=== PATIENT | male | born 1975 | race Caucasian/White ===

== ENCOUNTER 2017-08-30 12:34 | Inpatient (IN) | payer OTHER, MEDICAID, MEDICARE ==
[~2017-08-30] VITALS: Ht 182.9 cm; Wt 79.5 kg
[2017-08-30] VITALS (8 sets, daily range): BP systolic 107–141; BP diastolic 56–81; PULSE 88–111; RESP 18–20; TEMP 98.3–99.3; O2SAT 90–97
[~2017-08-30 12:34] MED LIST: DICL75 PO; Z.0.NO CURRENT MEDS
--- NOTE | 2017-08-30 14:42 | RADRPT ---
EXAM DATE/TIME: 08/30/2017 13:23 [place] COMPARISON: No previous studies available for comparison. INDICATIONS : Cough, short of breath, and chest pain for 2 weeks. MEDICAL HISTORY : None. SURGICAL HISTORY : None. ENCOUNTER: Initial ACUITY: 2 weeks PAIN SCORE: 4/10 LOCATION: Bilateral chest FINDINGS: There is a focal masslike opacity in the right upper lobe anteriorly. This measures approximately 7.4 x 6.5 cm. Subtle patchy airspace disease in the left lung apex. Cardiac silhouette is within normal limits. Bony thorax is intact. CONCLUSION: 1. Focal masslike right upper lobe airspace consolidation measuring 7.4 x 6.5 cm. Differential consid erations include focal airspace infection/atypical infection versus malignancy. Followup to resolutio n is recommended. 2. Subtle patchy airspace disease in the left lung apex concerning for developing airspace infection. Nestor Brice MD on August 30, 2017 at 14:36 Board Certified Radiologist. This report was verified electronically.
[2017-08-30 14:57] LABS: ALBUMIN 3.3 GM/DL (3.4-5.0); AST (GOT) 21 U/L (15-37); BICARBONATE 27.5 MEQ/L (21.0-32.0); BLOOD UREA NITROGEN 13 MG/DL (7-18); CALCIUM 9.5 MG/DL (8.5-10.1); CHLORIDE 99 MEQ/L (98-107); CREATININE 1.18 MG/DL (0.60-1.30); GLOMERULAR FILTRATION RATE 67 ML/MIN (>89); GLUCOSE,RANDOM 79 MG/DL (74-106); SODIUM (NA) 136 MEQ/L (136-145)
[2017-08-30 14:58] LABS: ALT (GPT) 40 U/L (12-78)
[2017-08-30 15:00] LABS: ALKALINE PHOSPHATASE 75 U/L (45-117); TOTAL BILIRUBIN ADULT 0.4 MG/DL (0.2-1.0); TOTAL PROTEIN 8.5 GM/DL (6.4-8.2)
[2017-08-30 15:07] LABS: AUTOMATED NEUTROPHIL # 14.7 TH/MM3 (1.8-7.7); BASOPHIL # 0.1 TH/MM3 (0-0.2); BASOPHIL % 0.4 % (0.0-2.0); EOSINOPHIL # 0.6 TH/MM3 (0-0.4); EOSINOPHIL % 2.9 % (0.0-4.0); HEMATOCRIT 41.1 % (39.0-51.0); HEMOGLOBIN 14.5 GM/DL (13.0-17.0); LYMPH % 15.2 % (9.0-44.0); MEAN CELL VOLUME 96.4 FL (80.0-100.0); MEAN CORPUSCULAR HEMOGLOBIN 34.1 PG (27.0-34.0); MEAN CORPUSCULAR HGB CONC 35.4 % (32.0-36.0); MEAN PLATELET VOLUME 7.8 FL (7.0-11.0); MONO % 7.4 % (0.0-8.0); MONOCYTE # 1.5 TH/MM3 (0-0.9); NEUT % 74.1 % (16.0-70.0); PLATELET COUNT 641 TH/MM3 (150-450); RED BLOOD COUNT 4.26 MIL/MM3 (4.50-5.90); RED CELL DISTRIBUTION WIDTH 13.9 % (11.6-17.2); WHITE BLOOD COUNT 19.8 TH/MM3 (4.0-11.0)
[2017-08-30 16:20] LABS: BANDS 3 % (0-6); BASOPHILS 1 % (0-2); LYMPHOCYTES 24 % (9-44); MONOCYTES 5 % (0-8); NEUTROPHIL # MANUAL DIFF 13.9 TH/MM3 (1.8-7.7); POLYS (SEG NEUTROPHILS) 67 % (16-70)
--- NOTE | 2017-08-30 16:44 | PD ---
HPI Chief Complaint: Cold / Flu Symptoms Time Seen by Provider: 16:36 Travel History International Travel<30 days: No Contact w/Intl Traveler<30days: No Traveled to known affect area: No History of Present Illness HPI 42-year-old male presents to emergency department status post seeing his PCP for follow-up emergency room visit at [facility]. Patient states he was checked for influenza which was found to be negative. He was given azithromycin and Ceftin by mouth outpatient. Patient is a smoker approximate half a pack per day. Patient states he has been sick since New Year' Day, with fevers up to 103. Patient continues to have cough, shortness of breath, chest discomfort as well as body aches. He denies nausea or vomiting or significant abdominal pain. Patient states primary care physician sent her here for admission. Patient has been taking Tylenol and ibuprofen for his fevers. He denies alcohol or drug use. He denies hemoptysis. He has no known drug allergies. 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) Influenza Vaccination: No Past Surgical History Oral Surgery: Yes (DENTAL IMPLANTS) Other Surgery: Yes (pilonal cyst) Social History Alcohol Use: No Tobacco Use: Yes (1/2 PPD) Substance Use: No Allergies-Medications (Allergen,Severity, Reaction): Coded Allergies: No Known Allergies (Verified , 05/18/10) Reported Meds & Prescriptions Reported Meds & Active Scripts Active Diclofenac Sodium 75 Mg Tab 75 Mg PO BIDPRN Reported No Current Meds (Miscellaneous Medication) Misc Review of Systems Except as stated in HPI: all other systems reviewed are Neg General / Constitutional: Positive: Fever, Chills Eyes: No: Visual changes HENT: Positive: Headaches, Rhinitis, Rhinorrhea, Congestion, No: Vertigo, Lightheadedness, Sore Throat, Nosebleed, Neck Stiffness, Neck Pain, Dental Difficulties, Earache Cardiovascular: No: Chest Pain or Discomfort Respiratory: Positive: Cough, Shortness of Breath, Wheezing, Orthopnea, Night Sweats, Pleuritic Pain (from cough.), No: Sneezing, Hemoptysis, Stridor Gastrointestinal: No: Nausea, Vomiting, Diarrhea, Abdominal Pain, Loss of Appetite Genitourinary: No: Dysuria Musculoskeletal: No: Pain Skin: No Rash Neurologic: No: Weakness Psychiatric: No: Depression Endocrine: No: Polydipsia Hematologic/Lymphatic: No: Easy Bruising Physical Exam Narrative GENERAL: Patient appears ill and possibly septic. SKIN: Warm. Decreased pallor. Mild diaphoresis. HEAD: Atraumatic. Normocephalic. EYES: Pupils equal and round. No scleral icterus. No injection or drainage. ENT: No nasal bleeding or discharge. Mucous membranes pink and moist. TMs are clear bilaterally. Pharynx is clear. No significant erythema is noted in the posterior pharynx. No significant tonsillitis. No significant sinus tenderness to palpation or percussion. NECK: Trachea midline. Supple and nontender. CARDIOVASCULAR: Tachycardic rate and normal rhythm. No murmurs appreciated. RESPIRATORY: No accessory muscle use. Patient has diffuse wheezes and rhonchi to auscultation. Breath sounds equal bilaterally. GASTROINTESTINAL: Abdomen soft, non-tender, nondistended. Hepatic and splenic margins not palpable. MUSCULOSKELETAL: Extremities without clubbing, cyanosis, or edema. No obvious deformities. NEUROLOGICAL: Awake and alert. No obvious cranial nerve deficits. Motor grossly within normal limits. Five out of 5 muscle strength in the arms and legs. Normal speech. PSYCHIATRIC: Appropriate mood and affect; insight and judgment normal. Data Data Last Documented VS Vital Signs Date Time Temp Pulse Resp B/P (MAP) Pulse Ox O2 Delivery O2 Flow Rate FiO2 08/30/17 17:27 88 18 127/70 (89) 94 Room Air 08/30/17 12:35 99.3 Orders Orders Complete Blood Count With Diff (08/30/17 12:59) Comprehensive Metabolic Panel (08/30/17 12:59) Chest, Pa & Lat (08/30/17 12:59) Ceftriaxone Inj (Rocephin Inj) (08/30/17 16:45) Azithromycin Inj (Zithromax Inj) (08/30/17 16:45) Lactic Acid (08/30/17 16:36) Blood Culture (08/30/17 16:36) Albuterol-Ipratropium Neb (Duoneb Neb) (08/30/17 16:45) Ecg Monitoring (08/30/17 16:36) Iv Access Insert/Monitor (08/30/17 16:36) Oximetry (08/30/17 16:36) Oxygen Administration (08/30/17 16:36) Methylprednisolone So Succ Inj (Solumedr (08/30/17 16:45) Albuterol-Ipratropium Neb (Duoneb Neb) (08/30/17 16:45) Blood Culture (08/30/17 16:54) Admit Order (Ed Use Only) (08/30/17 17:53) Labs Laboratory Tests Test 08/30/17 14:08 08/30/17 16:55 White Blood Count 19.8 TH/MM3 Red Blood Count 4.26 MIL/MM3 Hemoglobin 14.5 GM/DL Hematocrit 41.1 % Mean Corpuscular Volume 96.4 FL Mean Corpuscular Hemoglobin 34.1 PG Mean Corpuscular Hemoglobin Concent 35.4 % Red Cell Distribution Width 13.9 % Platelet Count 641 TH/MM3 Mean Platelet Volume 7.8 FL Neutrophils (%) (Auto) 74.1 % Lymphocytes (%) (Auto) 15.2 % Monocytes (%) (Auto) 7.4 % Eosinophils (%) (Auto) 2.9 % Basophils (%) (Auto) 0.4 % Neutrophils # (Auto) 14.7 TH/MM3 Lymphocytes # (Auto) 3.0 TH/MM3 Monocytes # (Auto) 1.5 TH/MM3 Eosinophils # (Auto) 0.6 TH/MM3 Basophils # (Auto) 0.1 TH/MM3 CBC Comment AUTO DIFF Differential Total Cells Counted 100 Neutrophils % (Manual) 67 % Band Neutrophils % 3 % Lymphocytes % 24 % Monocytes % 5 % Basophils % 1 % Neutrophils # (Manual) 13.9 TH/MM3 Differential Comment FINAL DIFF MANUAL Atypical Lymphocytes % Platelet Estimate HIGH Platelet Morphology Comment CLUMPED Blood Urea Nitrogen 13 MG/DL Creatinine 1.18 MG/DL Random Glucose 79 MG/DL Total Protein 8.5 GM/DL Albumin 3.3 GM/DL Calcium Level 9.5 MG/DL Alkaline Phosphatase 75 U/L Aspartate Amino Transf (AST/SGOT) 21 U/L Alanine Aminotransferase (ALT/SGPT) 40 U/L Total Bilirubin 0.4 MG/DL Sodium Level 136 MEQ/L Potassium Level 4.0 MEQ/L Chloride Level 99 MEQ/L Carbon Dioxide Level 27.5 MEQ/L Anion Gap 10 MEQ/L Estimat Glomerular Filtration Rate 67 ML/MIN Lactic Acid Level 0.9 mmol/L MDM Medical Decision Making Medical Screen Exam Complete: Yes Emergency Medical Condition: Yes Differential Diagnosis Pneumonia. Sepsis. Wheezing. Narrative Course Labs that were ordered in triage include CBC, and CMP. As well as chest x-ray. CBC shows leukocytosis of 19.8, elevated platelet count of 641, to the right shift with 74.1% neutrophils. X-ray shows focal masslike right upper lobe airspace consolidation measuring 7.4 x 6.5 cm with a differential consideration including focal airspace infection/atypical infection versus malignancy. Follow-up to resolution is recommended. Patient is noted have subtle patchy airspace disease in the left lung apex concerning for developing airspace infection. IV access is obtained and lactic acid is ordered. Patient is given 125 milligrams Solu-Medrol IV as well as 1 g Rocephin IV and 500 mg azithromycin by mouth. Patient is given DuoNeb 3. Patient is given 1000 ml normal saline bolus. Lactic acid is Call is placed to us for admission. Patient discussed with Dr. Concepcion by Dr. Chawla. Sepsis Criteria SIRS Criteria (2 or more): Heart rate over 90, RR > 20 or PaCO2 < 32, WBC > 00939, < 4000 or > 10% bands Sepsis Criteria (SIRS+source): Infect source susp/known Criteria Outcome: Meets SIRS criteria, Meets sepsis criteria Diagnosis Primary Impression: Pneumonia Qualified Codes: J18.1 - Lobar pneumonia, unspecified organism Additional Impressions: Sepsis Qualified Codes: A41.9 - Sepsis, unspecified organism Hypoxia Admitting Information Admitting Physician Requests: Admit Condition: Stable Gonzalez Moore Aug 30, 2017 16:44
[2017-08-30] MEDS ORDERED: AZITHROMYCIN INJ 500 MG in SODIUM CHLOR 0.9% 250 ML INJ 250 ML IV ONE (16:45)
[2017-08-30] MEDS ORDERED: RESP: ALBUTEROL 2.5 MG/IPRATROPIUM 0.5 MG NEB (SCH) NEB ONE (16:45)
[2017-08-30] MEDS ORDERED: methylPREDNISolone SOD SUCC 125 MG/2 ML VIAL IV PUSH ONE (16:45)
[2017-08-30] MEDS ORDERED: cefTRIAXone INJ 1,000 MG in SODIUM CHLORIDE 0.9% INJ 100 ML IV ONE (16:45)
[2017-08-30] MEDS: RESP: ALBUTEROL 2.5 MG/IPRATROPIUM 0.5 MG NEB (SCH) INH ×2 (17:31→17:32)
--- NOTE | 2017-08-30 17:46 | PD ---
Physical Exam Date Seen by Provider: Aug 30, 2017 Time Seen by Provider: 17:42 Narrative The patient is a 42-year-old male was initially evaluated by the mid-level provider. Please refer to the initial history, physical, diagnostic evaluation , and treatment modality plan. Data Data Last Documented VS Vital Signs Date Time Temp Pulse Resp B/P (MAP) Pulse Ox O2 Delivery O2 Flow Rate FiO2 08/30/17 17:27 88 18 127/70 (89) 94 Room Air 08/30/17 12:35 99.3 Orders Orders Complete Blood Count With Diff (08/30/17 12:59) Comprehensive Metabolic Panel (08/30/17 12:59) Chest, Pa & Lat (08/30/17 12:59) Ceftriaxone Inj (Rocephin Inj) (08/30/17 16:45) Azithromycin Inj (Zithromax Inj) (08/30/17 16:45) Lactic Acid (08/30/17 16:36) Blood Culture (08/30/17 16:36) Albuterol-Ipratropium Neb (Duoneb Neb) (08/30/17 16:45) Ecg Monitoring (08/30/17 16:36) Iv Access Insert/Monitor (08/30/17 16:36) Oximetry (08/30/17 16:36) Oxygen Administration (08/30/17 16:36) Methylprednisolone So Succ Inj (Solumedr (08/30/17 16:45) Albuterol-Ipratropium Neb (Duoneb Neb) (08/30/17 16:45) Blood Culture (08/30/17 16:54) Labs Laboratory Tests Test 08/30/17 14:08 08/30/17 16:55 White Blood Count 19.8 TH/MM3 Red Blood Count 4.26 MIL/MM3 Hemoglobin 14.5 GM/DL Hematocrit 41.1 % Mean Corpuscular Volume 96.4 FL Mean Corpuscular Hemoglobin 34.1 PG Mean Corpuscular Hemoglobin Concent 35.4 % Red Cell Distribution Width 13.9 % Platelet Count 641 TH/MM3 Mean Platelet Volume 7.8 FL Neutrophils (%) (Auto) 74.1 % Lymphocytes (%) (Auto) 15.2 % Monocytes (%) (Auto) 7.4 % Eosinophils (%) (Auto) 2.9 % Basophils (%) (Auto) 0.4 % Neutrophils # (Auto) 14.7 TH/MM3 Lymphocytes # (Auto) 3.0 TH/MM3 Monocytes # (Auto) 1.5 TH/MM3 Eosinophils # (Auto) 0.6 TH/MM3 Basophils # (Auto) 0.1 TH/MM3 CBC Comment AUTO DIFF Differential Total Cells Counted 100 Neutrophils % (Manual) 67 % Band Neutrophils % 3 % Lymphocytes % 24 % Monocytes % 5 % Basophils % 1 % Neutrophils # (Manual) 13.9 TH/MM3 Differential Comment FINAL DIFF MANUAL Atypical Lymphocytes % Platelet Estimate HIGH Platelet Morphology Comment CLUMPED Blood Urea Nitrogen 13 MG/DL Creatinine 1.18 MG/DL Random Glucose 79 MG/DL Total Protein 8.5 GM/DL Albumin 3.3 GM/DL Calcium Level 9.5 MG/DL Alkaline Phosphatase 75 U/L Aspartate Amino Transf (AST/SGOT) 21 U/L Alanine Aminotransferase (ALT/SGPT) 40 U/L Total Bilirubin 0.4 MG/DL Sodium Level 136 MEQ/L Potassium Level 4.0 MEQ/L Chloride Level 99 MEQ/L Carbon Dioxide Level 27.5 MEQ/L Anion Gap 10 MEQ/L Estimat Glomerular Filtration Rate 67 ML/MIN [facility] Medical Record Reviewed: Yes Supervised Visit with DAYAMI: Yes Interpretation(s) Last Impressions Chest X-Ray 08/30/17 1259 Signed Impressions: Service Date/Time: Wednesday, August 30, 2017 13:23 - CONCLUSION: 1. Focal masslike right upper lobe airspace consolidation measuring 7.4 x 6.5 cm. Differential considerations include focal airspace infection/atypical infection versus malignancy. Followup to resolution is recommended. 2. Subtle patchy airspace disease in the left lung apex concerning for developing airspace infection. Nestor Brice MD Laboratory Tests Test 08/30/17 14:08 08/30/17 16:55 White Blood Count 19.8 TH/MM3 Red Blood Count 4.26 MIL/MM3 Hemoglobin 14.5 GM/DL Hematocrit 41.1 % Mean Corpuscular Volume 96.4 FL Mean Corpuscular Hemoglobin 34.1 PG Mean Corpuscular Hemoglobin Concent 35.4 % Red Cell Distribution Width 13.9 % Platelet Count 641 TH/MM3 Mean Platelet Volume 7.8 FL Neutrophils (%) (Auto) 74.1 % Lymphocytes (%) (Auto) 15.2 % Monocytes (%) (Auto) 7.4 % Eosinophils (%) (Auto) 2.9 % Basophils (%) (Auto) 0.4 % Neutrophils # (Auto) 14.7 TH/MM3 Lymphocytes # (Auto) 3.0 TH/MM3 Monocytes # (Auto) 1.5 TH/MM3 Eosinophils # (Auto) 0.6 TH/MM3 Basophils # (Auto) 0.1 TH/MM3 CBC Comment AUTO DIFF Differential Total Cells Counted 100 Neutrophils % (Manual) 67 % Band Neutrophils % 3 % Lymphocytes % 24 % Monocytes % 5 % Basophils % 1 % Neutrophils # (Manual) 13.9 TH/MM3 Differential Comment FINAL DIFF MANUAL Atypical Lymphocytes % Platelet Estimate HIGH Platelet Morphology Comment CLUMPED Blood Urea Nitrogen 13 MG/DL Creatinine 1.18 MG/DL Random Glucose 79 MG/DL Total Protein 8.5 GM/DL Albumin 3.3 GM/DL Calcium Level 9.5 MG/DL Alkaline Phosphatase 75 U/L Aspartate Amino Transf (AST/SGOT) 21 U/L Alanine Aminotransferase (ALT/SGPT) 40 U/L Total Bilirubin 0.4 MG/DL Sodium Level 136 MEQ/L Potassium Level 4.0 MEQ/L Chloride Level 99 MEQ/L Carbon Dioxide Level 27.5 MEQ/L Anion Gap 10 MEQ/L Estimat Glomerular Filtration Rate 67 ML/MIN Differential Diagnosis Differential diagnoses includes pneumonia, influenza, viral syndrome, bronchitis , dehydration, failed outpatient therapy. Narrative Course I, Dr. Chawla, have reviewed the advance practice practitioner's documentation and am in agreement, met with the patient face to face, made the diagnosis, and the medical decision making was done by me. *My assessment and Findings: The patient is a 42-year-old male was initially evaluated by the mid-level provider. Please refer to the initial history, physical, diagnostic evaluation, treatment modality plan. The patient states he has had symptoms including cough, congestion, shortness of breath that started on August 21, 2017. The patient has been evaluated 3 times in the emergency department at [facility]. The patient states he had an influenza screen which was negative and there was diagnosed with pneumonia yesterday. The patient was diagnosed with pneumonia and placed on cefuroxime and Zithromax. However, the patient states his symptoms are progressing and he has increasing shortness of breath. The cough is mostly dry nonproductive. He does complain of fevers with mild body aches. In the emergency department the patient had an x-ray which reveals around lobe pneumonia in the right lung field with elevated white count of 19.8. Patient's heart rate was greater then 110, patient has SIRS criteria with pneumonia consistent with sepsis. Lactic acid blood culture were sent to lab. The patient was placed on Rocephin and Zithromax for community-acquired pneumonia and will be admitted to the medical service. The patient's O2 saturation was 90%, he was placed on O2 via nasal cannula 2 L. [facility] were paged for admission. Sepsis Criteria SIRS Criteria (2 or more): Heart rate over 90, WBC > 01727, < 4000 or > 10% bands Sepsis Criteria (SIRS+source): Infect source susp/known Physician Communication Physician Communication [facility] were paged for admission. Diagnosis Primary Impression: Pneumonia Qualified Codes: J18.1 - Lobar pneumonia, unspecified organism Additional Impressions: Hypoxia Sepsis Qualified Codes: A41.9 - Sepsis, unspecified organism Admitting Information Admitting Physician Requests: Admit Condition: Stable Rony Chawla MD Aug 30, 2017 17:45
[2017-08-30] MEDS ORDERED: AZIT500T2 PO (19:14)
[2017-08-30] MEDS ORDERED: CEFU1TAB18 PO (19:14)
[2017-08-30] MEDS ORDERED: MELO7.5T27 PO (19:14)
[2017-08-30] MEDS ORDERED: SODIUM CHLORIDE 0.9% FLUSH 10 ML FLUSH IV FLUSH PRN (19:30)
[2017-08-30] MEDS ORDERED: NALOXONE HCL 0.4 MG/ML AMP IV PUSH PRN (19:30)
[2017-08-30] MEDS ORDERED: RESP: ALBUTEROL 2.5 MG/IPRATROPIUM 0.5 MG NEB (PRN) NEB (19:30)
[2017-08-30] MEDS: RESP: ALBUTEROL 2.5 MG/IPRATROPIUM 0.5 MG NEB (SCH) NEB (20:41)
[2017-08-30] MEDS: SODIUM CHLORIDE 0.9% FLUSH 10 ML FLUSH IV FLUSH SCH (21:51)
[2017-08-30] MEDS: FAMOTIDINE 20 MG TAB PO SCH (21:51)
[2017-08-31] VITALS (9 sets, daily range): BP systolic 115–143; BP diastolic 58–72; PULSE 77–97; RESP 18; TEMP 97.4–98.4; O2SAT 93–96
[2017-08-31] MEDS: methylPREDNISolone SOD SUCC 40 MG/1 ML VIAL IV PUSH SCH ×4 (00:39→16:45)
[2017-08-31] MEDS: RESP: ALBUTEROL 2.5 MG/IPRATROPIUM 0.5 MG NEB (SCH) NEB ×4 (03:48→21:36)
--- NOTE | 2017-08-31 05:10 | HHI.HP ---
[facility] Unknown Admission Diagnosis Pneumonia/Sepsis/Hypoxia Diagnoses: (1) Pneumonia (2) Sepsis (3) Hypoxia Chief Complaint: Fevers, nonproductive cough, shortness of breath Travel History International Travel<30 Days: No Contact w/Intl Traveler <30 Da: No Traveled to Known Affected Are: No History of Present Illness Mr. 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 The patient was seen at the [facility] for treatment of 3 days of body aches and fevers. He was given Tamiflu despite a negative influenza screen and told to alternate Tylenol and Motrin. His symptoms persisted and on 08/29/2017, he returned to [facility] and was diagnosed with right middle lobe pneumonia. He was treated with azithromycin and Ceftin and sent home. He called his primary care physician to follow-up on 08/30/2017 and was advised to come to the hospital for admission. The patient is seen in his hospital room. He is complaining of severe, sharp right lower rib cage pain with coughing only, shortness of breath, severe fatigue, and malaise. He denies any nausea, vomiting, abdominal pain, or diarrhea. He reports daily bowel movements with last BM occurring 08/30/2017. His cough is nonproductive. He reports that his fevers have resolved since starting antibiotics. His temperature on admission was 99.3. He was hypoxic with an oxygen saturation of 90% and pulse of 110 with chest x-ray showing focal masslike right upper lobe airspace consolidation measuring 7.4 x 6.5 cm. Subtle patchy airspace disease and left lung apex concerning for development of airspace infection also. I have personally reviewed the chest x-ray image and agree with findings. The patient reports mild improvement in symptoms since arrival. The patient is admitted for sepsis, pneumonia, and hypoxia. 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 Past Surgical History Dental implants Pilonidal cyst removal . Reported Medications Reported Meds & Active Scripts Active Reported Meloxicam 7.5 Mg Tab 7.5 Mg PO DAILY Ceftin (Cefuroxime Axetil) 250 Mg Tab 500 Mg PO BID Azithromycin 500 Mg Tab 500 Mg PO DAILY . Allergies: Coded Allergies: No Known Allergies (Verified Allergy, Unknown, 08/30/17) Active Ordered Medications Last Impressions Chest X-Ray 08/30/17 1259 Signed Impressions: Service Date/Time: Wednesday, August 30, 2017 13:23 - CONCLUSION: 1. Focal masslike right upper lobe airspace consolidation measuring 7.4 x 6.5 cm. Differential considerations include focal airspace infection/atypical infection versus malignancy. Followup to resolution is recommended. 2. Subtle patchy airspace disease in the left lung apex concerning for developing airspace infection. Nestor Brice MD . Family History Mother alive Father from myocardial infarctions in his late 60s . Social History Tobacco: Recently cut down from 2 packs per day to one pack per day but has only been smoking one to 2 cigarettes a day since becoming ill Alcohol: Denies Illicit Drugs: Occasional marijuana . Physical Exam Vital Signs Vital Signs Date Time Temp Pulse Resp B/P (MAP) Pulse Ox O2 Delivery O2 Flow Rate FiO2 08/31/17 03:52 95 Nasal Cannula 1.00 08/31/17 02:39 Nasal Cannula 2.00 08/31/17 00:00 98.4 97 18 126/68 (87) 93 08/30/17 22:22 98.3 105 18 120/60 (80) 93 08/30/17 21:15 90 16 107/56 (73) 94 08/30/17 19:39 110 18 107/56 (73) 94 Nasal Cannula 2.00 08/30/17 19:14 111 20 94 Nasal Cannula 2.00 08/30/17 18:48 88 124/67 (86) 08/30/17 17:27 88 18 127/70 (89) 94 Room Air 08/30/17 17:27 94 08/30/17 16:34 93 18 141/81 (101) 97 Room Air 08/30/17 12:35 99.3 110 20 120/73 (89) 90 Room Air Physical Exam GENERAL: This is an ill-appearing patient, in no apparent distress. SKIN: No rashes, ecchymoses or lesions. Cool and dry. HEAD: Atraumatic. Normocephalic. EYES: No scleral icterus. No injection or drainage. Right eye does not track. ENT: Nose without bleeding, purulent drainage. NECK: Trachea midline. No JVD or lymphadenopathy. CARDIOVASCULAR: Regular rate and rhythm without murmurs, gallops, or rubs. RESPIRATORY: Mild dyspnea noted with conversation. Few scattered rhonchi noted bilaterally. GASTROINTESTINAL: Abdomen soft, non-tender, nondistended. No guarding. MUSCULOSKELETAL: Extremities without clubbing, cyanosis, or edema. No calf tenderness. NEUROLOGICAL: Awake and alert. Motor and sensory grossly within normal limits. Normal speech. . Laboratory Laboratory Tests Test 08/30/17 14:08 08/30/17 16:55 White Blood Count 19.8 Red Blood Count 4.26 Hemoglobin 14.5 Hematocrit 41.1 Mean Corpuscular Volume 96.4 Mean Corpuscular Hemoglobin 34.1 Mean Corpuscular Hemoglobin Concent 35.4 Red Cell Distribution Width 13.9 Platelet Count 641 Mean Platelet Volume 7.8 Neutrophils (%) (Auto) 74.1 Lymphocytes (%) (Auto) 15.2 Monocytes (%) (Auto) 7.4 Eosinophils (%) (Auto) 2.9 Basophils (%) (Auto) 0.4 Neutrophils # (Auto) 14.7 Lymphocytes # (Auto) 3.0 Monocytes # (Auto) 1.5 Eosinophils # (Auto) 0.6 Basophils # (Auto) 0.1 CBC Comment AUTO DIFF Differential Total Cells Counted 100 Neutrophils % (Manual) 67 Band Neutrophils % 3 Lymphocytes % 24 Monocytes % 5 Basophils % 1 Neutrophils # (Manual) 13.9 Differential Comment FINAL DIFF MANUAL Atypical Lymphocytes Platelet Estimate HIGH Platelet Morphology Comment CLUMPED Blood Urea Nitrogen 13 Creatinine 1.18 Random Glucose 79 Total Protein 8.5 Albumin 3.3 Calcium Level 9.5 Alkaline Phosphatase 75 Aspartate Amino Transf (AST/SGOT) 21 Alanine Aminotransferase (ALT/SGPT) 40 Total Bilirubin 0.4 Sodium Level 136 Potassium Level 4.0 Chloride Level 99 Carbon Dioxide Level 27.5 Anion Gap 10 Estimat Glomerular Filtration Rate 67 Lactic Acid Level 0.9 Date/Time Source Procedure Growth Status 08/30/17 16:45 Blood Peripheral Aerobic Blood Culture Pending Received 08/30/17 16:45 Blood Peripheral Anaerobic Blood Culture Pending Received Result Diagram: 08/30/17 1408 08/30/17 1408 Imaging . Last Impressions Chest X-Ray 08/30/17 1259 Signed Impressions: Service Date/Time: Wednesday, August 30, 2017 13:23 - CONCLUSION: 1. Focal masslike right upper lobe airspace consolidation measuring 7.4 x 6.5 cm. Differential considerations include focal airspace infection/atypical infection versus malignancy. Followup to resolution is recommended. 2. Subtle patchy airspace disease in the left lung apex concerning for developing airspace infection. MD Carloz Buck VTE Risk Assessment Caprini VTE Risk Assessment: Mod/High Risk (score >= 2) Caprini Risk Assessment Model Point Value = 1 Point Value = 2 Point Value = 3 Point Value = 5 Age 41-60 Minor surgery BMI > 25 kg/m2 Swollen legs Varicose veins or History of unexplained or recurrent spontaneous Oral contraceptives or hormone replacement Sepsis (< 1 month) Serious lung disease, including pneumonia (< 1 month) Abnormal pulmonary function Acute myocardial infarction Congestive heart failure (< 1 month) History of inflammatory bowel disease Medical patient at bed rest Age 61-74 Arthroscopic surgery Major open surgery (> 45 min) Laparoscopic surgery (> 45 min) Malignancy Confined to bed (> 72 hours) Immobilizing plaster cast Central venous access Age >= 75 History of VTE Family history of VTE Factor V Leiden Prothrombin [id number] Lupus anticoagulant Anticardiolipin antibodies Elevated serum homocysteine Heparin-induced thrombocytopenia Other congenital or acquired thrombophilia Stroke (< 1 month) Elective arthroplasty Hip, pelvis, or leg fracture Acute spinal cord injury (< 1 month) Prophylaxis Regimen Total Risk Factor Score Risk Level Prophylaxis Regimen 0-1 Low Early ambulation 2 Moderate Order ONE of the following: *Sequential Compression Device (SCD) *Heparin 5000 units SQ BID 3-4 Higher Order ONE of the following medications: *Heparin 5000 units SQ TID *Enoxaparin/Lovenox 40 mg SQ daily (WT < 150 kg, CrCl > 30 mL/min) *Enoxaparin/Lovenox 30 mg SQ daily (WT < 150 kg, CrCl > 10-29 mL/min) *Enoxaparin/Lovenox 30 mg SQ BID (WT < 150 kg, CrCl > 30 mL/min) AND/OR *Sequential Compression Device (SCD) 5 or more Highest Order ONE of the following medications: *Heparin 5000 units SQ TID (Preferred with Epidurals) *Enoxaparin/Lovenox 40 mg SQ daily (WT < 150 kg, CrCl > 30 mL/min) *Enoxaparin/Lovenox 30 mg SQ daily (WT < 150 kg, CrCl > 10-29 mL/min) *Enoxaparin/Lovenox 30 mg SQ BID (WT < 150 kg, CrCl > 30 mL/min) AND *Sequential Compression Device (SCD) Assessment and Plan Problem List: (1) Pneumonia ICD Code: J18.9 - Pneumonia, unspecified organism Status: Acute (2) Sepsis ICD Code: A41.9 - Sepsis, unspecified organism Status: Acute (3) Hypoxia ICD Code: R09.02 - Hypoxemia Status: Acute Assessment and Plan Pneumonia, bilateral Sepsis Hypoxia - Antibiotics: Levaquin 750 mg every 24 hours IV and azithromycin 500 mg every 24 hours IV - Duo nebulizers every 6 hours around the clock and every 2 hours as needed for wheezing - Solu-Medrol 40 mg IV every 6 hours - Robitussin-AC 10 cc every 4 hours by mouth for painful cough for cough interfering with rest - Pepcid 20 mg twice a day for GI prophylaxis - Incentive spirometry - Blood culture pending, follow results Tobacco abuse - Recommended smoking cessation Leukocytosis - WBC 19.8 with neutrophilia - Recheck CBC in a.m. and follow trends - in place. Resolution with effective treatment of pneumonia DVT prophylaxis - Heparin 5000 units subcutaneous every 12 hours Discussed Condition With Patient, Dr. York Physician Certification 2 Midnight Certification Type: Admission for Inpatient Services Order for Inpatient Services The services are ordered in accordance with Medicare regulations or non- Medicare payer requirements, as applicable. In the case of services not specified as inpatient-only, they are appropriately provided as inpatient services in accordance with the 2-midnight benchmark. Estimated LOS (days): 3 days is the estimated time the patient will need to remain in the hospital, assuming treatment plan goals are met and no additional complications. Post-Hospital Plan: Home Problem Qualifiers (1) Pneumonia: Qualified Codes: J18.1 - Lobar pneumonia, unspecified organism (2) Sepsis: Qualified Codes: A41.9 - Sepsis, unspecified organism Kaitlyn Ramírez Aug 31, 2017 05:09
[2017-08-31] MEDS: LEVOFLOXACIN 750 MG PREMIX INJ 150 ML IV SCH (05:40)
[2017-08-31] MEDS: guaiFENesin/CODEINE SYRUP 200 MG/20 MG/10 ML CUP PO PRN ×2 (05:41→13:58)
[2017-08-31] MEDS: HEPARIN SODIUM - SQ 10,000 UNITS/ML VIAL SQ SCH ×2 (09:00→09:08)
[2017-08-31] MEDS: SODIUM CHLORIDE 0.9% FLUSH 10 ML FLUSH IV FLUSH SCH (09:05)
[2017-08-31] MEDS: FAMOTIDINE 20 MG TAB PO SCH (09:06)
[2017-08-31 09:20] LABS: BICARBONATE 23.3 MEQ/L (21.0-32.0); CALCIUM 8.6 MG/DL (8.5-10.1); CREATININE 0.98 MG/DL (0.60-1.30)
--- NOTE | 2017-08-31 11:30 | HHI.PR ---
Subjective Remarks Follow up pneumonia. Patient states that he is starting to feel better. Still with dyspnea, cough. Chest pain with coughing. Objective Vitals Vital Signs Date Time Temp Pulse Resp B/P (MAP) Pulse Ox O2 Delivery O2 Flow Rate FiO2 08/31/17 09:14 77 08/31/17 07:48 97.5 88 18 122/58 (79) 94 08/31/17 04:00 97.5 86 18 115/64 (81) 94 08/31/17 03:52 95 Nasal Cannula 1.00 08/31/17 02:39 Nasal Cannula 2.00 08/31/17 00:00 98.4 97 18 126/68 (87) 93 08/30/17 22:22 98.3 105 18 120/60 (80) 93 08/30/17 21:15 90 16 107/56 (73) 94 08/30/17 19:39 110 18 107/56 (73) 94 Nasal Cannula 2.00 08/30/17 19:14 111 20 94 Nasal Cannula 2.00 08/30/17 18:48 88 124/67 (86) 08/30/17 17:27 88 18 127/70 (89) 94 Room Air 08/30/17 17:27 94 08/30/17 16:34 93 18 141/81 (101) 97 Room Air 08/30/17 12:35 99.3 110 20 120/73 (89) 90 Room Air I/O 08/30/17 08/30/17 08/30/17 08/31/17 08/31/17 08/31/17 07:00 15:00 23:00 07:00 15:00 23:00 Intake Total 550 ml Balance 550 ml Intake Oral 200 ml IV Total 350 ml Result Diagram: 08/30/17 1408 08/31/17 0727 Imaging Last Impressions Chest X-Ray 08/30/17 1259 Signed Impressions: Service Date/Time: Wednesday, August 30, 2017 13:23 - CONCLUSION: 1. Focal masslike right upper lobe airspace consolidation measuring 7.4 x 6.5 cm. Differential considerations include focal airspace infection/atypical infection versus malignancy. Followup to resolution is recommended. 2. Subtle patchy airspace disease in the left lung apex concerning for developing airspace infection. Nestor Brice MD Objective Remarks General: No acute distress. Heart: Regular rate and rhythm. No murmur. Lungs: Scattered rhonchi. Breathing is nonlabored. Abdomen: Soft, nontender, nondistended. Extremities: No lower extremity edema. Psych: Alert and oriented. Procedures None Urinary Catheter: No Vascular Central Line Catheter: No A/P Problem List: (1) Pneumonia ICD Code: J18.9 - Pneumonia, unspecified organism Status: Acute (2) Sepsis ICD Code: A41.9 - Sepsis, unspecified organism Status: Acute (3) Hypoxia ICD Code: R09.02 - Hypoxemia Status: Acute Assessment and Plan 1. Pneumonia: CXR shows masslike consolidation. Check CT chest to further evaluate. Continue antibiotics, nebs, oxygen. 2. Tobacco abuse: Counselled to quit. 3. Leukocytosis: Likely secondary to infection. 4. Sepsis: Met criteria with leukocytosis, tachycardia. Source is pneumonia. Continue treatment as above. Blood cultures are pending. 5. DVT prophylaxis: Heparin. Problem Qualifiers (1) Pneumonia: Qualified Codes: J18.1 - Lobar pneumonia, unspecified organism (2) Sepsis: Qualified Codes: A41.9 - Sepsis, unspecified organism Erasmo Pelaez MD Aug 31, 2017 11:30
[2017-08-31] MEDS ORDERED: IOHEXOL 350 MG/ML 10 ML VIAL (for RAD DIAG) IVCONTRAST ONE (12:39)
[2017-08-31 13:48] LABS: AUTOMATED NEUTROPHIL # 15.7 TH/MM3 (1.8-7.7); BASOPHIL # 0.2 TH/MM3 (0-0.2); BASOPHIL % 0.9 % (0.0-2.0); HEMATOCRIT 35.1 % (39.0-51.0); HEMOGLOBIN 11.8 GM/DL (13.0-17.0); LYMPH % 7.4 % (9.0-44.0); LYMPHOCYTE # 1.3 TH/MM3 (1.0-4.8); MEAN CELL VOLUME 91.5 FL (80.0-100.0); MEAN CORPUSCULAR HEMOGLOBIN 30.9 PG (27.0-34.0); MEAN CORPUSCULAR HGB CONC 33.7 % (32.0-36.0); MEAN PLATELET VOLUME 7.2 FL (7.0-11.0); MONO % 3.4 % (0.0-8.0); MONOCYTE # 0.6 TH/MM3 (0-0.9); NEUT % 88.3 % (16.0-70.0); PLATELET COUNT 492 TH/MM3 (150-450); RED BLOOD COUNT 3.84 MIL/MM3 (4.50-5.90); RED CELL DISTRIBUTION WIDTH 13.6 % (11.6-17.2); WHITE BLOOD COUNT 17.8 TH/MM3 (4.0-11.0)
--- NOTE | 2017-08-31 14:16 | RADRPT ---
EXAM DATE/TIME: 08/31/2017 12:29 [place] COMPARISON: CHEST PA & LAT, August 30, 2017, 13:23. INDICATIONS : Patient with cough shortness of breath and chest pain. Patient has an abnormal chest x-ray examinatio n demonstrating a focal masslike area of airspace consolidation in the right upper lobe. There is pat sobeida infiltrate in the left upper lobe as well. IV CONTRAST: 65 cc Omnipaque 350 (iohexol) IV RADIATION DOSE: 9.56 CTDIvol (mGy) MEDICAL HISTORY : None SURGICAL HISTORY : None. ENCOUNTER: Initial ACUITY: 4 - 6 days PAIN SCALE: 0/10 LOCATION: chest TECHNIQUE: Volumetric scanning of the chest was performed. Using automated exposure control and adjustment of t he mA and/or kV according to patient size, radiation dose was kept as low as reasonably achievable to obtain optimal diagnostic quality images. DICOM format image data is available electronically for review and comparison. Follow-up recommendations for detected pulmonary nodules are based at a minimum on nodule size and pa tient risk factors according to Fleischner Society Guidelines. FINDINGS: LUNGS: There is dense consolidation in the anterior lower right upper lobe with multiple air bronchograms. T here is milder patchy infiltrate left upper lobe.. There is atelectasis and or scarring in the lung b ases. PLEURA: There is no pleural thickening or pleural effusion. MEDIASTINUM: The heart and great vessels demonstrate no acute abnormality. There is no mediastinal or hilar lymph adenopathy. AXILLAE: Within normal limits. No lymphadenopathy. SKELETAL: Within normal limits for patient age. MISCELLANEOUS: The visualized upper abdominal organs demonstrate no acute abnormality. CONCLUSION: 1. Dense consolidation in the right upper lobe with air bronchograms consistent with pneumonia. 2. Milder patchy infiltrate in the left upper lobe. Atelectasis in lung bases. Martinez Natarajan MD on August 31, 2017 at 14:03 Board Certified Radiologist. This report was verified electronically.
[2017-08-31] MEDS ORDERED: AZITHROMYCIN INJ 500 MG in SODIUM CHLOR 0.9% 250 ML INJ 250 ML IV SCH (18:00)
[2017-09-01] VITALS (8 sets, daily range): BP systolic 116–130; BP diastolic 64–81; PULSE 64–89; RESP 18–20; TEMP 97.5–97.9; O2SAT 93–94
[2017-09-01] MEDS: SODIUM CHLORIDE 0.9% FLUSH 10 ML FLUSH IV FLUSH SCH ×2 (00:08→08:40)
[2017-09-01] MEDS: methylPREDNISolone SOD SUCC 40 MG/1 ML VIAL IV PUSH SCH ×3 (00:08→11:11)
[2017-09-01] MEDS: FAMOTIDINE 20 MG TAB PO SCH ×2 (00:09→08:39)
[2017-09-01] MEDS: HEPARIN SODIUM - SQ 10,000 UNITS/ML VIAL SQ SCH ×2 (00:09→08:41)
[2017-09-01] MEDS: RESP: ALBUTEROL 2.5 MG/IPRATROPIUM 0.5 MG NEB (SCH) NEB ×3 (03:13→09:14)
[2017-09-01] MEDS: LEVOFLOXACIN 750 MG PREMIX INJ 150 ML IV SCH (05:38)
[2017-09-01] MEDS: guaiFENesin/CODEINE SYRUP 200 MG/20 MG/10 ML CUP PO PRN (08:40)
[2017-09-01 09:10] LABS: AUTOMATED NEUTROPHIL # 14.6 TH/MM3 (1.8-7.7); BASOPHIL # 0.1 TH/MM3 (0-0.2); BASOPHIL % 0.4 % (0.0-2.0); HEMOGLOBIN 12.4 GM/DL (13.0-17.0); LYMPH % 8.1 % (9.0-44.0); LYMPHOCYTE # 1.3 TH/MM3 (1.0-4.8); MEAN CELL VOLUME 99.9 FL (80.0-100.0); MEAN CORPUSCULAR HEMOGLOBIN 37.5 PG (27.0-34.0); MEAN PLATELET VOLUME 7.1 FL (7.0-11.0); MONO % 3.4 % (0.0-8.0); MONOCYTE # 0.6 TH/MM3 (0-0.9); NEUT % 88.1 % (16.0-70.0); PLATELET COUNT 530 TH/MM3 (150-450); RED BLOOD COUNT 3.31 MIL/MM3 (4.50-5.90); RED CELL DISTRIBUTION WIDTH 13.8 % (11.6-17.2); WHITE BLOOD COUNT 16.6 TH/MM3 (4.0-11.0)
[2017-09-01 09:15] LABS: MEAN CORPUSCULAR HGB CONC 37.5 % (32.0-36.0)
[2017-09-01 10:12] LABS: BANDS 9 % (0-6); LYMPHOCYTES 11 % (9-44); MONOCYTES 5 % (0-8); NEUTROPHIL # MANUAL DIFF 13.9 TH/MM3 (1.8-7.7); POLYS (SEG NEUTROPHILS) 75 % (16-70)
--- NOTE | 2017-09-01 11:26 | HHI.PR ---
Subjective Remarks Follow up pneumonia. Patient states that he feels much better today and wants to go home. Cough improving. Objective Vitals Vital Signs Date Time Temp Pulse Resp B/P (MAP) Pulse Ox O2 Delivery O2 Flow Rate FiO2 09/01/17 09:31 84 09/01/17 09:15 93 09/01/17 07:56 97.5 79 20 116/65 (82) 93 09/01/17 05:26 97.7 80 18 126/71 (89) 94 09/01/17 04:00 64 09/01/17 00:31 97.7 75 18 117/64 (81) 94 09/01/17 00:00 73 08/31/17 20:48 97.6 85 18 143/69 (93) 96 08/31/17 16:05 94 08/31/17 16:05 93 Nasal Cannula 1.00 08/31/17 15:53 97.5 83 18 123/71 (88) 93 08/31/17 11:56 97.4 96 18 118/72 (87) 93 I/O 08/31/17 08/31/17 08/31/17 09/01/17 09/01/17 09/01/17 06:59 14:59 22:59 06:59 14:59 22:59 Intake Total 850 ml Balance 850 ml Intake Oral 600 ml IV Total 250 ml # Voids 3 # Bowel Movements 1 Result Diagram: 09/01/17 0814 08/31/17 0727 Imaging Last Impressions Chest CT 08/31/17 0000 Signed Impressions: Service Date/Time: August 12:29 - CONCLUSION: 1. Dense consolidation in the right upper lobe with air bronchograms consistent with pneumonia. 2. Milder patchy infiltrate in the left upper lobe. Atelectasis in lung bases. Martinez Natarajan MD Chest X-Ray 08/30/17 1259 Signed Impressions: Service Date/Time: Wednesday, August 30, 2017 13:23 - CONCLUSION: 1. Focal masslike right upper lobe airspace consolidation measuring 7.4 x 6.5 cm. Differential considerations include focal airspace infection/atypical infection versus malignancy. Followup to resolution is recommended. 2. Subtle patchy airspace disease in the left lung apex concerning for developing airspace infection. Nestor Brice MD Objective Remarks General: No acute distress. Heart: Regular rate and rhythm. No murmur. Lungs: Scattered rhonchi. Breathing is nonlabored. Abdomen: Soft, nontender, nondistended. Extremities: No lower extremity edema. Psych: Alert and oriented. Procedures None Urinary Catheter: No Vascular Central Line Catheter: No A/P Problem List: (1) Pneumonia ICD Code: J18.9 - Pneumonia, unspecified organism Status: Acute (2) Sepsis ICD Code: A41.9 - Sepsis, unspecified organism Status: Acute (3) Hypoxia ICD Code: R09.02 - Hypoxemia Status: Acute Assessment and Plan 1. Pneumonia: CXR shows masslike consolidation. CT chest confirms pneumonia. Continue antibiotics, nebs. Patient now on room air. Will check respiratory walk test. 2. Tobacco abuse: Counselled to quit. 3. Leukocytosis: Likely secondary to infection. 4. Sepsis: Met criteria with leukocytosis, tachycardia. Source is pneumonia. Continue treatment as above. Blood cultures are negative so far. 5. DVT prophylaxis: Heparin. Discharge Planning Possible discharge home today if not requiring oxygen. Problem Qualifiers (1) Pneumonia: Qualified Codes: J18.1 - Lobar pneumonia, unspecified organism (2) Sepsis: Qualified Codes: A41.9 - Sepsis, unspecified organism Erasmo Pelaez MD Sep 01, 2017 11:26
[2017-09-01] MEDS ORDERED: LEVA750T9 PO (12:51)
[2017-09-01] MEDS ORDERED: NEBULIZER1 MI1 (12:51)
[2017-09-01] MEDS ORDERED: PRED10PA PO (12:51)
[2017-09-01] MEDS ORDERED: ALBU0.08 NEB (12:51)
--- NOTE | 2017-09-01 12:52 | HHI.DCPOC ---
Discharge Care Plan Diagnosis: (1) Sepsis (2) Tobacco abuse (3) Hypoxia (4) Pneumonia Goals to Promote Your Health * To prevent worsening of your condition and complications * To maintain your health at the optimal level Directions to Meet Your Goals Take your medications as prescribed Follow your dietary instruction Follow activity as directed Keep your appointments as scheduled Take your immunizations and boosters as scheduled If your symptoms worsen call your PCP, if no PCP go to Urgent Care Center or Emergency Room Smoking is Dangerous to Your Health. Avoid second hand smoke Call the 24-hour hour crisis hotline for domestic abuse at Erasmo Pelaez MD Sep 01, 2017 12:52
== END 2017-09-01 14:19 | disposition home or self-care (01) | DRG 871 ==
LOC: NEPC 12:34 → NEDA 17:54 → N05B 21:29
PROVIDERS: ADMIT Family Medicine; ATTEND Family Medicine
DX: A41.9 Sepsis, unspecified organism (principal); J18.9 Pneumonia, unspecified organism; R09.02 Hypoxemia; H54.61 Unqualified visual loss, right eye, normal vision left eye; F17.210 Nicotine dependence, cigarettes, uncomplicated; F12.90 Cannabis use, unspecified, uncomplicated
CPT/HCPCS: 71046; 71260; 80048; 80053; 83605; 85007; 85025; 85027; 87040; 94150; 94618; 94640; 94664; 96365; 96375; J0456; J0696; J1644; J1956; J2920; J2930; J7050; Q9967